=== PATIENT | female | born 1955 ===

== ENCOUNTER 2017-02-15 14:14 | Emergency (ER) | payer MEDICAID ==
[2017-02-15 14:14] VITALS: BMI 19.9
[2017-02-15] MEDS ORDERED: Albuterol-Ipratrop 3 mg / 0.5 (3 ml) UD ONE ×2 (14:18→15:19)
[2017-02-15 14:24] VITALS: BP 110/73; PULSE 79; TEMP 98; O2SAT 100
--- NOTE | 2017-02-15 14:34 | C.PDOC ---
History Of Present Illness 61F c/o dry cough, chest congestion, SOB for the last week. she uses inhaler and nebulizer at home with some relief but sx were worse today. no fever. heavy smoker for many years. reports hx of "asthma." Time Seen by Provider: 02/15/17 14:33 Chief Complaint (Nursing): Shortness Of Breath Past Medical History Vital Signs: Last Vital Signs Temp 98.0 F 02/15/17 14:24 Pulse 79 02/15/17 14:24 Resp 26 H 02/15/17 14:24 BP 110/73 02/15/17 14:24 Pulse Ox 100 02/15/17 14:59 - Medical History PMH: Anxiety, Asthma, Bipolar Disorder, Depression, HTN Denies: Diabetes, Hepatitis, HIV, Chronic Kidney Disease, Schizophrenia, Seizures, Sexually Transmitted Disease - [facility] Procedures ENDOSC POLYPECTOMY OF LG INTEST (06/25/13) GROUP PSYCHOTHERAPY (11/24/16) INDIVID PSYCHOTHERAP NEC (05/29/14) INTRODUCTION OF SERUM/TOX/VACCINE INTO MUSCLE, PERC APPROACH (11/24/16) OTHER GROUP THERAPY (05/29/14) VENOUS PUNCTURE NEC (02/13/15) Family History: States: Other Other Family History: nc - Social History Hx Alcohol Use: No Hx Substance Use: Yes Review Of Systems Except As Marked, All Systems Reviewed And Found Negative. Constitutional: Negative for: Fever, Chills, Malaise Cardiovascular: Positive for: Light Headedness. Negative for: Chest Pain, Edema Respiratory: Positive for: Cough, Shortness of Breath, Wheezing. Negative for: Hemoptysis Gastrointestinal: Negative for: Nausea, Vomiting, Abdominal Pain Neurological: Negative for: Weakness, Numbness Physical Exam - Physical Exam Appears: Non-toxic, No Acute Distress Skin: Warm, Dry Head: Atraumatic Eye(s): bilateral: PERRL Oral Mucosa: Moist Neck: Normal ROM Cardiovascular: Rhythm Regular Respiratory: Decreased Breath Sounds, No Accessory Muscle Use, No Rales, No Rhonchi, No Stridor, Wheezing Extremity: No Swelling Pulses: Left Radial: Normal, Right Radial: Normal Neurological/Psych: Oriented x3, Other (no focal deficits) ED Course And Treatment - Laboratory Results Result Diagrams: 02/15/17 15:05 02/15/17 15:05 O2 Sat by Pulse Oximetry: 100 Medical Decision Making Medical Decision Making: ecg- nsr 74, nl axis, nl int, no acute ischemia cxr- copd, no acute findings 1650 the pt reports feeling much better. her spo2 is 93% while ambulating on room air. she is comfortable w dc. follow up and return prec advised. Disposition - Disposition Disposition: HOME/ ROUTINE Disposition Time: 16:51 Condition: IMPROVED - Clinical Impression Clinical Impression: COPD exacerbation
[2017-02-15 15:08] LABS: BASO # 0.1 K/uL (0.0-0.2); BASO % 0.8 % (0.0-2.0); EOS # 0.2 K/uL (0.0-0.7); EOS % 2.1 % (0.0-4.0); LYMPH % 23.4 % (20.0-40.0); MEAN CELL VOLUME 95.6 fL (81.0-99.0); MEAN CORPUSCULAR HGB CONC 33.5 g/dL (33.0-37.0); MONO # 0.7 K/uL (0.0-0.8); MONO % 8.8 % (0.0-10.0); RED CELL DISTRIBUTION WIDTH 13.8 % (11.5-14.5); WHITE BLOOD COUNT 8.4 K/uL (4.8-10.8)
[2017-02-15] MEDS: Albuterol-Ipratrop 3 mg / 0.5 (3 ml) UD IH SCH ×3 (15:15→15:24)
[2017-02-15 15:23] LABS: CHLORIDE 103 mmol/L (98-107); SODIUM 142 mmol/L (132-148)
[2017-02-15 15:24] LABS: POTASSIUM 4.3 mmol/L (3.6-5.2)
[2017-02-15 15:25] LABS: GFR AFRICAN-AMERICAN > 60
[2017-02-15 15:26] LABS: ALB/GLOB RATIO 1.3 (1.0-2.1); ALKALINE PHOSPHATASE 70 U/L (38-126); ALT/SGPT 29 U/L (9-52); AST/SGOT 25 U/L (14-36); BILIRUBIN,TOTAL 0.9 mg/dL (0.2-1.3); BLOOD UREA NITROGEN 13 mg/dL (7-17); CARBON DIOXIDE 28 mmol/L (22-30); GLUCOSE,RANDOM 88 mg/dL (65-105); TOTAL PROTEIN 7.6 g/dL (6.3-8.3)
[2017-02-15 15:27] LABS: CALCIUM 9.1 mg/dl (8.6-10.4)
--- NOTE | 2017-02-15 15:56 | RAD ---
HISTORY: cough sob COMPARISON: None available. TECHNIQUE: Chest PA and lateral FINDINGS: LUNGS: Hyperinflation may be seen in setting of COPD. No focal consolidation. 9 mm nodular density projects over the right mid lung zone compatible with nipple shadow. Please note that chest x-ray has limited sensitivity for the detection of pulmonary masses. PLEURA: No significant pleural effusion identified. No definite pneumothorax . CARDIOVASCULAR: The cardiomediastinal silhouette appears within normal limits of size. OSSEOUS STRUCTURES: Mild degenerative changes. VISUALIZED UPPER ABDOMEN: Unremarkable. OTHER FINDINGS: None. IMPRESSION: Hyperinflation may be seen in setting of COPD.
[2017-02-15 17:07] VITALS: RESP 20
--- NOTE | 2017-03-11 21:37 | CARD ---
APPROVED REPORT EKG Measurement Heart [id number] [place] [id number] <Conclusion> Normal sinus rhythm Anterior infarct, age undetermined Abnormal ECG
== END 2017-02-15 17:06 | disposition home or self-care (01) ==
LOC: C.ER 14:14
DX: J44.1 Chronic obstructive pulmonary disease with (acute) exacerbation (principal)
CPT/HCPCS: 71020; 80053; 82948; 85025; 94640; 96374; 99284; J2930